=== PATIENT | female | born 1940 | race Caucasian/White ===

== ENCOUNTER 2017-03-10 03:53 | Inpatient (IN) | payer OTHER, MEDICARE ==
[~2017-03-10] VITALS: Ht 154.9 cm; Wt 91.6 kg
[~2017-03-10 03:53] MED LIST: BETAPACE80 MG PO; CLARITIN10 M1 PO; COLACE100 M1 PO; COQ10-VIT E 101 EACH PO; DIAZEPAM5 M1 PO; DILTIAZEM 12HR120 MG PO; DIOVAN80 M1 PO; FENTANYL1 EAC3 TOP; LASIX40 M1 PO; MAGNESIUM400 M1 PO; METAMUCIL FIBE3.4 GM PO; METAMUCIL660 GM PO; NORCO 5-325 TA1 EACH PO; NUCYNTA50 M1 PO; OMEGA-31000 M1 PO; OS-CAL 500+D31 EAC1 PO; PANTOPRAZOLE SO40 M1 PO; PROBIOTIC1 EACH PO; SOTALOL80 M1 PO; VITAMIN C500 M7 PO; ZOLPIDEM TARTRA10 M1 PO
[2017-03-10] MEDS ORDERED: ACETAMINOPHEN650 M4 PO (09:33)
--- NOTE | 2017-03-10 12:23 | Admission Core Measures ---
Admission Meds I reviewed the following Meds: Current Medications Sig/Augie Start time Last Medication Dose Stop Time Status Admin Acetaminophen 975 MG ONCE 03/10 0000 NR (Tylenol) 03/10 2359 Cefazolin Sodium 2,000 MG ONCE 03/10 NR (Kefzol-Ancef Inj) 03/10 2359 Diazepam 5 MG DAILY PRN 03/10 1215 UNVr (Valium) Diltiazem HCl 120 MG DAILY 03/11 1000 UNVr (Cardizem SR) Fentanyl Citrate 50 MCG Q3D 03/10 1215 UNVr (Duragesic) Furosemide 40 MG 03/11 0800 UNVr (Lasix) Lactobacillus 1 CAP DAILY 03/11 1000 UNVr Acidophilus (Probiotic) Loratadine 10 MG DAILY 03/11 1000 UNVr (Claritin) Losartan Potassium 25 MG DAILY 03/11 1000 UNVr (Cozaar) Zolpidem Tartrate 5 MG QPM PRN 03/10 1230 UNVr (Ambien) Acute Coronary Syndrome Inclusion Criteria ACS Diagnosis No Inpatient Core Measures LDL Reminder: If No, please order W/I first 24hr of stay Congestive Heart Failure Inclusion Criteria CHF Diagnosis No Cerebrovascular accident Inclusion Criteria CVA/TIA Diagnosis No Inpatient Core Measures Bedside Swallow Eval Reminder: If BSE failed, place ST order Antithrombotic Reminder: Order Antithrombotic Medication by end of day 2 Antithrombotic Reminder: Document Reason Antithrombotic Not ordered by end of day 2 AFIB/Flutter Reminder: If Present, add to problem list AFIB/Flutter Reminder: Order Anticoag Medication for pts with AFIB/Flutter Atherosclerosis Reminder: If Present, add to problem list LDL Reminder: If No, please order W/I first 24hr of stay PT Order Reminder: If No, please order Venous thromboembolism Inpatient Core Measures VTE Risk Factors: Age > 40, Surgery No [facility] VTE prophylaxis d/t No contraindications No VTE Pharm Prophylaxis d/t No contraindications Inclusion Criteria - Per Current guidelines, there needs to be overlap - treatment for the first 5 days of Warfarin therapy. - Parenteral Anticoagulation (IV or SC) needs to be - given along with Warfarin therapy. VTE Diagnosis No VTE Type NONE VTE Confirmed by (Test) NONE Problem List As ranked by this Provider includes Assessment & Plan 1. Status post total hip replacement, right HOME MEDS Home Med List Acetaminophen (Acetaminophen 8 Hour) 650 MG TABLET.ER 2 TAB PO EVERY 6 HRS PRN PAIN (Reported) Ascorbic Acid (Vitamin C) 500 MG CAPSULE.ER 1 TAB PO D VITAMIN SUPPORT ( Reported) Calcium Carbonate/Vitamin D3 (Os-Robert 500+D3 Caplet) 500 MG-200 TABLET 1 TAB PO DAILY VITAMIN SUPPORT (Reported) Diazepam 5 MG TABLET 1 TAB PO DAILY PRN ABDOMINAL SPAMS (Reported) Diltiazem HCl (Diltiazem 12HR ER) 120 MG CAP.ER.12H 1 CAP PO DAILY IRREG HEART BEAT (Reported) Fentanyl 50 MCG/HOUR PATCH.TD72 1 PAT TOP Q3D CHRONIC PAIN (Reported) Furosemide (Lasix) 40 MG TABLET 1 TAB PO 0800 LEG SWELLING (Reported) Lactobacillus Acidophilus (Probiotic) 10 BILLION CELL CAPSULE 1 CAP PO DAILY IMMUNOSUPPRESSANT (Reported) Loratadine (Claritin) 10 MG TABLET 1 TAB PO DAILY SINUS CONGESTION (Reported) Pantoprazole Sodium 40 MG TABLET.DR 1 TAB PO BID GERD (Reported) Tapentadol HCl (Nucynta) 50 MG TABLET 1 TAB PO Q6P PRN PAIN (Reported) Valsartan (Diovan) 80 MG TABLET 1 TAB PO 2000 HTN (Reported) Zolpidem Tartrate 10 MG TABLET 0.5 TAB PO QPM PRN SLEEP (Reported) Discontinued Medications Clopidogrel Bisulfate (Clopidogrel) 75 MG TABLET 1 TAB PO DAILY BLOOD THINER (Reported) Discontinued reason: Changed to different med Dabigatran Etexilate Mesylate (Pradaxa 150 MG) 150 MG CAPSULE 1 CAP PO 0800, 2200 AFIB (Reported) Discontinued reason: Changed to different med Docusate Sodium (Colace) 100 MG CAPSULE 1 100MG PO 799, 1999 CONSTIPATION ( Reported) Discontinued reason: Changed Dose Hydrocodone/Acetaminophen ([place] 5-325 Tablet) 5 MG-325 MG TABLET 1 TAB PO BID PRN PAIN (Reported) Discontinued reason: Changed to different med Psyllium Hydrophy Sugar Free (Metamucil Fiber Singles Packet) 3.4 GRAM POWD.PACK 2 Packet PO D CONSTIPATION (Reported) Discontinued reason: Changed to different med
[2017-03-10] MEDS ORDERED: CLOPIDOGREL75 M1 PO (12:25)
[2017-03-10] MEDS ORDERED: PRADAXA150 M1 PO (12:25)
--- NOTE | 2017-03-10 12:29 | Patient Discharge Instructions ---
Discharge Instructions General Discharge Information You were seen/treated for: Hip pain You had these procedures: Total hip replacement Watch for these problems: temp>101, increased redness or drainage of wounds Do not soak the wound: Yes Other wound care: Keep incision clean and dry Special Instructions: Do not take pradaxa or plavix for the next three weeks while taking eliquis instead. In three weeks, when the course of eliquis is complete, restart both the plavix and pradaxa at previously prescribed doses. Diet Recommended Diet: Heart Healthy Activity Activity Self Limited: Yes Activity Limited to: Weight bear as tolerated Acute Coronary Syndrome Inclusion Criteria At DC or during hospital stay patient has or had the following: ACS DIAGNOSIS No Discharge Core Measures Meds if any: Prescribed or Continued at Discharge Meds if any: NOT Prescribed or Continued at Discharge Congestive Heart Failure Inclusion Criteria At DC or during hospital stay patient has or had the following: CHF DIAGNOSIS No Discharge Core Measures Meds if any: Prescribed or Continued at Discharge Meds if any: NOT Prescribed or Continued at Discharge Cerebrovascular accident Inclusion Criteria At DC or during hospital stay patient has or had the following: CVA/TIA Diagnosis No Discharge Core Measures Meds if any: Prescribed or Continued at Discharge Meds if any: NOT Prescribed or Continued at Discharge Venous thromboembolism Inclusion Criteria VTE Diagnosis No VTE Type NONE VTE Confirmed by (Test) NONE Discharge Core Measures - Per Current guidelines, there needs to be overlap - treatment for the first 5 days of Warfarin therapy. - If discharged on Warfarin prior to 5 days of - overlap therapy, the patient will need to be - assessed for post discharge needs including - *Post discharge parental anticoagulation - *Warfarin and/or parental anticoagulation education - *Follow up date to check INR post discharge At least 5 days overlap therapy as Inpatient No Meds if any: Prescribed or Continued at Discharge Note: Overlap Therapy is Warfarin and Anticoagulant Meds if any: NOT Prescribed or Continued at Discharge
[2017-03-10] MEDS ORDERED: ELIQUIS2.5 M1 PO (12:32)
[2017-03-10] MEDS ORDERED: MIRALAX17 G1 PO (12:32)
[2017-03-10] MEDS ORDERED: COLACE100 M1 PO (12:32)
[2017-03-10] MEDS ORDERED: DILAUDID2 M1 PO (12:32)
--- NOTE | 2017-03-10 12:35 | Surg Short-stay <48hrs Dis Sum ---
Visit Information Visit Dates Admission Date: 03/10/17 Discharge Date: 03/13/17 Surgical Short Stay DC Summary Admission Diagnosis: hip pain Final Diagnosis: s/p thr Procedure(s): R THR - see operative report Summary/Significant Findings: Pt underwent R THR by Dr Arceo. She tolerated the procedure well and was brought to the PACU in stable condition. Post op she was able to void without difficulty, her pain was well controlled with oral medication and she worked with PT. She was cleared by PT for discharge to short term rehab. Condition at Discharge: good Discharge Disposition: SNF Discharge instructions provided to patient/family: No Post discharge follow-up plan: Keep scheduled appt with Dr Arceo
--- NOTE | 2017-03-10 15:29 | RADIOLOGY REPORT ---
EXAMINATION: XR HIP, RIGHT CLINICAL INFORMATION: Status post right total hip replacement. COMPARISON: Right hip MRI of 01/13/2017. TECHNIQUE: Portable AP and crosstable lateral views of the right hip are acquired. FINDINGS: The right total hip arthroplasty hardware is in satisfactory position. There is no evidence of associated osseous fracture. Expected postsurgical changes of from soft tissue edema and air are seen in the right gluteal region and proximal thigh. IMPRESSION: Expected postsurgical changes of right total hip arthroplasty with hardware in the satisfactory position.
--- NOTE | 2017-03-10 16:12 | PN- Orthopedic ---
Subjective Subjective: Awake, alert No complaints post op Pain well controlled at this time No nausea Objective Vital Signs and I&Os VSS, afebrile HR 80's a fib General: alert and oriented times three Chest: clear anteriorly bilaterally, irr/irr Abd: soft, good bs, stoma in left mid abdomen with soft stool in bag Ext: warm, no edema, positive sensate, no calf tenderness, 5/5 ZAFAR BLE Wound: dressed, dry, ice pack in place Current Medications: Current Medications Sig/Augie Start time Last Medication Dose Route Stop Time Status Admin Acetaminophen 975 MG ONCE 03/10 0000 NR PO 03/10 2359 Cefazolin Sodium 2,000 MG ONCE 03/10 0000 NR IV 03/10 2359 Diazepam 5 MG DAILY PRN 03/10 1215 AC PO Diltiazem HCl 120 MG DAILY 03/11 1000 AC PO Fentanyl Citrate 50 MCG Q3D 03/10 1215 AC TOP Furosemide 40 MG 0800 03/11 0800 AC PO Lactobacillus 1 CAP DAILY 03/11 1000 AC Acidophilus PO Loratadine 10 MG DAILY 03/11 1000 AC PO Losartan Potassium 25 MG DAILY 03/11 1000 AC PO Zolpidem Tartrate 5 MG QPM PRN 03/10 1230 AC PO Assessment/Plan Assessment/Plan 76 yo female s/p L THR, pt has a history of a fib, rectal cancer s/p resection, PE, htn, spinal stenosis, chronic pain management pain management - dilaudid/morphinie and continue fentanyl patch from home valium as at home prn spasms Will hold home med nucynta at this time - discussed with patient restarting after post op narcotics are completed eliquis 2.5mg po bid for dvt ppx Hold plavix/pradaxa which patient is taking for a fib per Dr Arceo - will restart in 3 weeks PT - wbat Core Measures/Miscellaneous Venous Thromboembolism VTE Risk Factors: Age > 40, Surgery VTE Contraindications: No Contraindications VTE Diagnosis: No VTE Type: NONE VTE Confirmed by (Test): NONE Beta Ced Is Beta Ced a Home Med? No Antibiotics Is Patient on Antibiotics? Yes If Yes: prophylaxis (24 hours)
--- NOTE | 2017-03-10 16:43 | Operative Report ---
Operative/Inv Procedure Report Surgery Date: 03/10/17 Name of Procedure: Right total hip replacement Pre-Operative Diagnosis: Right hip avascular necrosis Post-Operative Diagnosis: Same Estimated Blood Loss: 300 Surgeon/Corporate Human Resources Manager: NOHEMY TURNER,PATI Chaudhari Anesthesia: block Operative/Procedure Note Note: Description of Procedure: The patient was taken to the operating room and positively identified. After induction of spinal anesthesia and administration of appropriate pre-operative antibiotics, the patient was positioned supine on the operating room table and all bony prominences were well padded. After performing a surgical timeout, the right lower extremity was prepped and draped in the usual sterile fashion. A direct anterior approach was made to the right hip. The incision was carried sharply through superficial soft tissues to the level of the fascia. Meticulous hemostasis was maintained with Bovie electocautery. The fascia over the tensor fascia mable muscle was opened sharply and the interval between the TFL and the sartorius was entered bluntly taking care to stay lateral to the lateral femoral cutaneous nerve. Retractors were placed around the femoral neck and the pericapsular fat was identified. The ascending branches of the lateral femoral circumflex vessels were identified and carefully coagulated. The pericapsular fat and anterior capsule were then resected. A napkin ring osteotomy was performed and the femoral head was removed without difficulty. Attention was then turned to the acetabulum. After appropriate placement of retractors, the acetabulum was exposed. Soft tissue was cleaned from the acetabular margin and notch. Overhanging osteophytes were removed and the teardrop was exposed. The acetabulum was then sequentially reamed to accept a 52 mm [place] Tritanium hemispherical cluster hole shell. This was impacted into place in the appropriate position and fitted with a 36 mm Trident X3 zero degree polyethylene insert. Attention was then turned to the femur. After performing the appropriate ligament releases, the proximal femur was exposed. It was then sequentially broached to accept a size 3 Antolin Accolade 2 stem. This was trialed for leg length and stability. The trial component was removed and the final component was impacted into place. The trunnion was carefully cleaned and fit with a 36 mm, -5 Biolox delta ceramic femoral head. The hip was reduced and put through a full range of motion and found to be stable. The articular space was then irrigated with sterile saline. The periarticular soft tissues were infilitrated with Marcaine. The fascial layer was closed with interrupted #1 vicryl suture and the skin was re-approximated with interrupted 2 -0 vicryl. The skin was closed with a running 3-0 V-Lock suture. Steri-strips and a sterile dressing were applied. The patient was awakened and taken to the recovery room in satisfactory condition.
[2017-03-10 17:15] VITALS: BP 122/74
[2017-03-10 19:55] VITALS: BP 105/64
[2017-03-10 22:09] VITALS: BP 100/58
[2017-03-10 23:45] VITALS: BP 117/65
[2017-03-11 02:40] VITALS: BP 118/60
[2017-03-11 06:42] VITALS: BP 102/59
--- NOTE | 2017-03-11 07:52 | PN- Orthopedic ---
Subjective Subjective: The patient was seen this morning postoperatively day #1. She complaints of some mild incisional soreness for which she reports that her pain medications do help. She has no other complaints at the current time and is eager to work with physical therapy. Objective Vital Signs and I&Os Vital Signs Date Time Temp Pulse Resp B/P B/P Pulse O2 O2 Flow FiO2 Mean Ox Delivery Rate 03/11 0642 98.2 96 20 102/59 93 Room Air / 0240 85 20 118/60 96 05/08 2345 99.0 100 20 117/65 95 Room Air 05/08 2209 100.1 100 20 100/58 96 Room Air 05/ 1955 97.9 102 20 105/64 94 Room Air / 1723 99 Nasal 2.0L Cannula / 1715 98.3 85 16 122/74 99 Nasal 2.0L Cannula Intake & Output / 0800 05/09 0000 05/08 1600 05/08 0800 05/08 0000 05/07 1600 Intake Total 1380 2240 Output Total 300 300 Balance 1080 1940 Intake, IV 900 750 Intake, Oral 480 1490 Output, Stool 0 100 Output, Urine 300 200 Patient 202 lb Weight Weight Reported by Patient Measurement Method Physical Exam: Gen.: Alert and in no obvious distress Skin: Warm and dry Extremities: Bilateral lower extremities are warm without calf tenderness or significant edema. Gross motor and sensory are intact. Right hip surgical dressing is slightly blood tinged but otherwise intact. There is expected prei- incisional ecchymosis. Assessment/Plan Assessment/Plan Assessment: 76-year-old female status post right total hip arthroplasty postoperative day #1. The patient is progressing as expected and her pain is under adequate control. Plan: Out of bed with physical therapy patient is weightbearing as tolerated Follow-up morning laboratory studies Hep-Lock IV fluids Continue current pain regiment Eliquis 2.5mg po bid Strict I's and O's Incentive spirometry First surgical dressing change tomorrow Core Measures/Miscellaneous Venous Thromboembolism VTE Risk Factors: Age > 40, Surgery VTE Contraindications: No Contraindications VTE Diagnosis: No VTE Type: NONE VTE Confirmed by (Test): NONE Beta Ced Is Beta Ced a Home Med? No Antibiotics Is Patient on Antibiotics? No
[2017-03-11 10:30] VITALS: BP 118/72
[2017-03-11 11:41] LABS: ABSOLUTE BASOPHIL COUNT 0 /CUMM (0.0-0.2); ABSOLUTE EOSINOPHIL COUNT 0 /CUMM (0.0-0.7); ABSOLUTE GRANULOCYTE CT 6.6 /CUMM (1.4-6.5); ABSOLUTE LYMPH COUNT 0.7 /CUMM (1.2-3.4); ABSOLUTE MONOCYTE COUNT 1.1 /CUMM (0.10-0.60); BASOPHIL % 0 % (0.0-2.0); EOSINOPHIL % 0.3 % (0-5); GRANULOCYTE % 78.4 % (42.2-75.2); HEMATOCRIT 35.6 % (37-47); MEAN CORPUSCULAR HGB 32.6 PG (27.0-31.0); MEAN CORPUSCULAR HGB CONC 34.2 G/DL (33.0-37.0); MEAN CORPUSCULAR VOLUME 95.4 FL (81.0-99.0); MEAN PLATELET VOLUME 8.2 FL (7.4-10.4); PLATELET COUNT 188 /CUMM (130-400); RBC DISTRIBUTION WIDTH 13.5 % (11.5-14.5); RED BLOOD CELL CT 3.73 /CUMM (4.20-5.40); WHITE BLOOD CELL COUNT 8.4 /CUMM (4.8-10.8)
[2017-03-11 15:06] VITALS: BP 109/63
[2017-03-11 22:27] VITALS: BP 118/68
[2017-03-12 06:56] VITALS: BP 120/64
--- NOTE | 2017-03-12 07:25 | PN- Orthopedic ---
Subjective Subjective: POD2 S/P RIGHT PATO FEELING MUCH BETTER TODAY [place] CP, SOB, NO N+V WITH DIET Objective Vital Signs and I&Os Vital Signs Date Time Temp Pulse Resp B/P B/P Pulse O2 O2 Flow FiO2 Mean Ox Delivery Rate 03/12 0656 98.4 97 20 120/64 94 Room Air 03/11 2227 98.4 105 20 118/68 96 Room Air 03/11 2027 80 110/60 03/11 1506 99.6 116 20 109/63 96 Room Air 03/11 1308 98.5 03/11 1030 100.1 101 20 118/72 94 Room Air 03/11 0959 Room Air 2.0L Intake & Output 03/12 0000 03/11 1600 03/11 0800 03/11 0000 03/10 1600 Intake Total 494 015 5457 2240 Output Total 800 300 300 Balance -391 353 3062 1940 Intake, IV 0 900 750 Intake, Oral 120 032 203 8987 Number 0 Bowel Movements Output, Stool 100 0 100 Output, Urine 700 300 200 Patient 202 lb Weight Weight Reported by Patient Measurement Method Physical Exam: CV: RRR LUNGS: CLEAR ABD: SOFT, +BS EXT: DRSG CHANGED, WOUND CD/I THIGH SOFT NO CALF TENDERNESS BILAT DISTAL CMS INTACT Assessment/Plan Assessment/Plan ORTHO STABLE PLAN OOB WITH PT/STAIRS ELIQUIS BID FOR DVT PROPHYLAXIS SNF TOMORROW Core Measures/Miscellaneous Venous Thromboembolism VTE Risk Factors: Age > 40, Surgery VTE Contraindications: No Contraindications VTE Diagnosis: No VTE Type: NONE VTE Confirmed by (Test): NONE Beta Ced Is Beta Ced a Home Med? No Antibiotics Is Patient on Antibiotics? No
[2017-03-12 14:01] VITALS: BP 94/62
[2017-03-12 14:52] VITALS: BP 102/60
[2017-03-12 22:07] VITALS: BP 122/50
[2017-03-13 06:49] VITALS: BP 106/64
--- NOTE | 2017-03-13 07:30 | PN- Orthopedic ---
Subjective Subjective: Patient has no major complaints this morning. Pain is well-controlled. She is tolerating a diet, voiding well, and had a bowel movement in the colostomy. She is awaiting discharge to rehabilitation. Otherwise denies headache, dizziness, chest pain, shortness of breath. Objective Vital Signs and I&Os Vital Signs Date Time Temp Pulse Resp B/P B/P Pulse O2 O2 Flow FiO2 Mean Ox Delivery Rate 03/13 0649 99.5 84 18 106/64 97 Room Air 03/12 2207 97.5 95 18 122/50 97 03/12 2009 86 100/60 03/12 1452 98 102/60 03/12 1401 99.4 115 18 94/62 96 Intake & Output 03/13 1600 03/13 0800 03/13 0000 03/12 1600 03/12 0000 Intake Total 120 800 860 340 120 Output Total 350 501 750 500 800 Balance -230 299 110 -160 -680 Intake, IV 10 0 Intake, Oral 120 800 850 340 120 Number 0 Bowel Movements Output, Stool 50 1 0 100 Output, Urine 300 500 750 500 700 Physical Exam: Gen: Patient is awake and alert. She is sitting in the bed. No acute distress. Cardiac: Regular Pulmonary: Lungs are clear bilaterally. Extremities: The hip dressing was changed. The incision is clean, dry, and intact with Steri-Strips at the inferior and medial aspect and nylon sutures at the superior aspect. There is a small skin tear which was covered by the new dressing. Paper tape was used. The thigh is soft. Lower extremity sensation is intact. Strength of dorsiflexion and plantarflexion is 5 out of 5. No calf tenderness is noted. Assessment/Plan Assessment/Plan Patient is a 76-year-old female with a history of A. fib, chronic pain, hypertension, GERD, rectal cancer/colostomy, who is now postoperative day #3 status post right total hip replacement. Patient remains stable from a surgical standpoint. Plan: -Continue Eliquis 2.5 twice a day for DVT prophylaxis 3 weeks. Patient can restart her Plavix and protected asked the upon discontinuation of Ellik within 3 weeks. -Continue PT for mobilization. Weight-bear as tolerated with rolling walker. -Dry dressing change once daily. -Pain control with by mouth Dilaudid. -Colace and MiraLAX for bowel regimen while using pain meds. -Plan for discharge to short-term rehabilitation today. Core Measures/Miscellaneous Venous Thromboembolism VTE Risk Factors: Age > 40, Surgery VTE Contraindications: No Contraindications VTE Diagnosis: No VTE Type: NONE VTE Confirmed by (Test): NONE Beta Ced Is Beta Ced a Home Med? No Antibiotics Is Patient on Antibiotics? No
== END 2017-03-13 11:34 | DRG 470 ==
LOC: STS 03:53 → EDSTATUS 07:00 → STS 07:00 → 2NB 09:08 → SDA 09:08 → ENRESERV 15:55 → CANRESERV 15:55 → ENRESERV 16:16 → 2NB 16:53 → ENPENDDIS 03-13 08:36 → 2NB 03-13 11:34
PROVIDERS: Physician Assistant Surgical; ADMIT Orthopaedic Surgery
PROC: 0SR904A Replacement of Right Hip Joint with Ceramic on Polyethylene Synthetic Substitute, Uncemented, Open Approach (ICD-10-PCS; principal; 2017-03-10)
DX: M87.851 Other osteonecrosis, right femur (principal); I48.2 Chronic atrial fibrillation; E66.9 Obesity, unspecified; I10 Essential (primary) hypertension; Z85.048 Personal history of other malignant neoplasm of rectum, rectosigmoid junction, and anus; Z86.711 Personal history of pulmonary embolism; Z68.38 Body mass index [BMI] 38.0-38.9, adult; G47.33 Obstructive sleep apnea (adult) (pediatric); K21.9 Gastro-esophageal reflux disease without esophagitis; Z93.3 Colostomy status; G89.29 Other chronic pain; E78.00 Pure hypercholesterolemia, unspecified; E04.1 Nontoxic single thyroid nodule; I25.10 Atherosclerotic heart disease of native coronary artery without angina pectoris; M48.06 Spinal stenosis, lumbar region; Z95.5 Presence of coronary angioplasty implant and graft
CPT/HCPCS: 2NAP; 73502-RT; 82436; 88304; 97110-GO; 97116-GO; 97161-GP; 97530-GO; J0690; J0735; J1100; J2405; J7042

== ENCOUNTER → 2017-05-19 | Day surgery (SDC) | payer OTHER, MEDICARE ==
[~2017-05-19] VITALS: Ht 154.9 cm; Wt 93.0 kg
[~2017-05-19] MED LIST changes: +ACETAMINOPHEN650 M4 PO; +CLOPIDOGREL75 M1 PO; +DILAUDID2 M1 PO; +ELIQUIS2.5 M1 PO; +HYDROCODON-ACE1 EAC2 PO; +MIRALAX17 G1 PO; +NUCYNTA100 M1 PO; +PRADAXA150 M1 PO
[2017-05-19 06:39] LABS: ABSOLUTE BASOPHIL COUNT 0 /CUMM (0.0-0.2); ABSOLUTE EOSINOPHIL COUNT 0.1 /CUMM (0.0-0.7); ABSOLUTE GRANULOCYTE CT 2.9 /CUMM (1.4-6.5); ABSOLUTE LYMPH COUNT 1.7 /CUMM (1.2-3.4); ABSOLUTE MONOCYTE COUNT 0.6 /CUMM (0.10-0.60); BASOPHIL % 0.5 % (0.0-2.0); EOSINOPHIL % 2.2 % (0-5); GRANULOCYTE % 55.3 % (42.2-75.2); HEMATOCRIT 39.5 % (37-47); MEAN CORPUSCULAR HGB CONC 32.8 G/DL (33.0-37.0); MEAN CORPUSCULAR VOLUME 94.6 FL (81.0-99.0); MEAN PLATELET VOLUME 7.8 FL (7.4-10.4); PLATELET COUNT 241 /CUMM (130-400); RBC DISTRIBUTION WIDTH 14.1 % (11.5-14.5); RED BLOOD CELL CT 4.17 /CUMM (4.20-5.40); WHITE BLOOD CELL COUNT 5.3 /CUMM (4.8-10.8)
--- NOTE | 2017-05-19 16:09 | Operative Report ---
Operative/Inv Procedure Report Surgery Date: 05/19/17 Name of Procedure: Right hip irrigation and non-excisional debridement Pre-Operative Diagnosis: Right hip wound breakdown Post-Operative Diagnosis: Same Estimated Blood Loss: less than 50ml Surgeon/Sorter Lumber Straightener: PATI SLATER MD Anesthesia: laryngeal mask airway Operative/Procedure Note Note: The patient was brought to the operating room and positively identified. After induction of LMA anesthesia she was positioned supine on the operating room table and all bony prominences were well-padded. The right hip was then prepped and draped in usual sterile fashion. Prior to the surgery there were some superficial breakdown of the proximal 1 cm off her hip incision. This did not track deeply by inspection. No drainage was noted prior to the surgery. The wound was opened over the length of approximately 2 cm. A retained suture was removed. The wound did not track deep. Nonetheless the fat layer was opened further and again the wound did not track any deeper than the surgical field. All retained suture was removed. The wound was irrigated and bleeding was coagulated. The wound was then closed with interrupted vertical mattress sutures. Sterile dressing was applied and the patient was awakened. She was then taken to the recovery room in satisfactory condition.
== END ==
LOC: STS 04:35
PROVIDERS: Orthopaedic Surgery
DX: T81.31XA Disruption of external operation (surgical) wound, not elsewhere classified, initial encounter (principal); Z96.641 Presence of right artificial hip joint; I48.91 Unspecified atrial fibrillation; I10 Essential (primary) hypertension; Z85.048 Personal history of other malignant neoplasm of rectum, rectosigmoid junction, and anus; J44.9 Chronic obstructive pulmonary disease, unspecified
CPT/HCPCS: 36415; J0131; J0690; J2250